=== PATIENT | female | born 1945 | race Caucasian/White ===

== ENCOUNTER → 2023-05-16 09:35 | Outpatient (REF) | payer MEDICARE, OTHER, SELFPAY ==
[2023-05-16 13:11] LABS: Depakane 61.1 ug/ml (50.0-120.0)
== END ==
LOC: OLABN 09:35
PROVIDERS: ATTENDING PHYSICIAN Student in an Organized Health Care Education/Training Program
DX: F03.90 Unspecified dementia, unspecified severity, without behavioral disturbance, psychotic disturbance, mood disturbance, and anxiety (principal)
CPT/HCPCS: 36415; 80164

== ENCOUNTER → 2023-06-27 10:43 | Outpatient (REF) | payer MEDICARE, OTHER, SELFPAY ==
[2023-06-27 12:56] LABS: % Basophils 0.7 % (0-2); % Eosinophils 3.5 % (0-6); % Immature Granulocytes 0.7 % (0-0.5); % Monocytes 14.6 % (1.7-9.3); % Neutrophils 39.5 % (42.2-75.2); Absolute Basophils 0.1 10^3/uL (0-0.2); Absolute Eosinophils 0.3 10^3/uL (0-0.7); Absolute Immature Granulocytes 0.1 10^3/uL (0-0.05); Absolute Lymphocytes 3.9 10^3/uL (1.2-3.4); Absolute Monocytes 1.4 10^3/uL (0.1-0.6); Absolute Neutrophils 3.7 10^3/uL (1.4-6.5); Hematocrit 32.7 % (37.0-47.0); Hemoglobin 10.5 g/dL (12.0-16.0); Mean Corp Hgb Conc. 32.1 g/dL (33.0-37.0); Mean Corpuscular Hgb 28.8 pg (27.0-31.0); Mean Corpuscular Volume 89.8 fL (81.0-99.0); Mean Platelet Volume 10.3 fL (7.4-10.4); Nucleated Red Blood Cells % 0 %; Platelet Count 304 10^3/uL (130-400); Red Blood Cell Count 3.64 10^6/uL (4.20-5.40); Red Cell Dist. Width 14.2 % (11.5-14.5); White Blood Cell Count 9.4 10^3/uL (4.8-10.8)
[2023-06-27 13:21] LABS: ALT (SGPT) 11 U/L (0-35); AST (SGOT) 23 U/L (14-36); Albumin 3.3 g/dl (3.5-5.0); Alkaline Phosphatase 61 U/L (38-126); Blood Urea Nitrogen 19 mg/dl (7-17); Calcium 9.1 mg/dl (8.4-10.2); Carbon Dioxide 24 mmol/L (22-30); Chloride 103 mmol/L (98-107); Glucose 84 mg/dl (70-99); HDL Cholesterol 34 mg/dl; LDL Cholesterol, Calculated 146 mg/dl; Potassium 4.9 mmol/L (3.5-5.1); Sodium 135 mmol/L (135-145); Total Bilirubin 0.4 mg/dl (0.2-1.3); Total Cholesterol 223 mg/dl (50-199); Total Protein 6.1 g/dl (6.3-8.2); Triglyceride 217 mg/dl (10-149); Very Low Density Lipoprotein 43 mg/dl (0-30); eGFR > 60.00
[2023-06-28 08:52] LABS: Glycohemoglobin (HgbA1c) 5.5 % (4.0-5.6)
== END ==
LOC: OLABN 10:43
PROVIDERS: ATTENDING PHYSICIAN Student in an Organized Health Care Education/Training Program
DX: E88.810 Metabolic syndrome (principal); E88.818 Other insulin resistance; E78.5 Hyperlipidemia, unspecified; I10 Essential (primary) hypertension; E11.00 Type 2 diabetes mellitus with hyperosmolarity without nonketotic hyperglycemic-hyperosmolar coma (NKHHC)
CPT/HCPCS: 36415; 80053; 80061; 83036; 85025

== ENCOUNTER → 2023-06-28 09:22 | Outpatient (REF) | payer MEDICARE, OTHER, SELFPAY | LOC: OLABN 09:22 | PROVIDERS: ATTENDING PHYSICIAN Student in an Organized Health Care Education/Training Program | DX: F03.90 Unspecified dementia, unspecified severity, without behavioral disturbance, psychotic disturbance, mood disturbance, and anxiety (principal) | CPT/HCPCS: 36415 ==

== ENCOUNTER → 2023-06-29 11:22 | Outpatient (REF) | payer MEDICARE, OTHER, SELFPAY ==
[2023-06-29 12:52] LABS: Depakane 68.1 ug/ml (50.0-120.0)
== END ==
LOC: OLABN 11:22
PROVIDERS: ATTENDING PHYSICIAN Student in an Organized Health Care Education/Training Program
DX: F03.90 Unspecified dementia, unspecified severity, without behavioral disturbance, psychotic disturbance, mood disturbance, and anxiety (principal)
CPT/HCPCS: 36415; 80164

== ENCOUNTER → 2023-09-26 11:04 | Outpatient (REF) | payer MEDICARE, OTHER, SELFPAY ==
[2023-09-26 11:49] LABS: HDL Cholesterol 32 mg/dl; LDL Cholesterol, Calculated 85 mg/dl; Total Cholesterol 153 mg/dl (50-199); Triglyceride 182 mg/dl (10-149); Very Low Density Lipoprotein 36 mg/dl (0-30)
== END ==
LOC: OLABN 11:04
PROVIDERS: ATTENDING PHYSICIAN Student in an Organized Health Care Education/Training Program
DX: E78.5 Hyperlipidemia, unspecified (principal)
CPT/HCPCS: 36415; 80061

== ENCOUNTER 2023-10-26 11:03 | Emergency (ER) | payer MEDICARE, OTHER, SELFPAY ==
[2023-10-26 11:09] VITALS: BP 121/58
--- NOTE | 2023-10-26 11:12 | ED.GENMED ---
History of Present Illness
<nAnel Jang DISPENSING OPTICIAN - Last Filed: 10/26/23 16:44>
General
Chief Complaint: Fever
Source: ambulance crew and detention records
Exam Limitations: non verbal-adult
Time Seen by Provider: 10/26/23 11:04
History of Present Illness
History of Present Illness:
77 yo female from [facility] with MDD, Hypothyroid, HLD, present for reported abd xray at the facility showing questionable ileus. Pt is nonverbal, alert, appears in no distress.
Spoke with Nurse Shady, states she was having intermittent nausea and vomiting for the past week and a half, using Zofran with no response, abdominal x-ray today showed possible ileus. On mechanical soft diet, typically a very good eater, eats all
her meals until this past week when appetite has been poor. Had 3 BMs in past 3 days soft to loose.
Past History
<Annel Jang, DISPENSING OPTICIAN - Last Filed: 10/26/23 16:44>
Past History
ED Past Medical History: GERD, Hypercholesterolemia, Hypothyroidism and Psychiatric (Major depressive disorder)
Review of Systems
<Annel Jang, DISPENSING OPTICIAN - Last Filed: 10/26/23 16:44>
Review of Systems
Allergies reviewed?: Yes
All Other Systems: ROS reviewed and negative except as documented in HPI and ROS
Constitutional: Reports fever
Respiratory: Denies trouble breathing
ABD/GI: Reports nausea, vomiting and anorexia; Denies diarrhea, bloody stools or black stools
: Reports incontinence
Musculoskeletal: Denies edema
Skin: Reports no symptoms
Phy Exam
<Annel Jang, DISPENSING OPTICIAN - Last Filed: 10/26/23 16:44>
Physical Exam
Physical Exam:
GENERAL: No acute distress. Nonverbal
CONSTITUTIONAL: Afebrile.
EYES: clear, conjunctivae normal
ENMT: moist mucus membranes, Pharynx nl
RESPIRATORY: Regular respirations, nonlabored, lungs clear.
CARDIOVASCULAR: Regular rate and rhythm, no murmurs, no rubs.
GI: Soft, obese, no facial indication of tenderness with deep palpation of abdomen, normal BS
MUSCULOSKELETAL: Well perfused.
SKIN: Warm, dry, pink
PSYCH: Depressed mood and affect. Well kept, non verbal
NEUROLOGIC: Awake, alert, nonverbal. No focal neurological deficits
Course
<Annel Carpio Day, DISPENSING OPTICIAN - Last Filed: 10/26/23 16:44>
Orders/Labs/Results
Orders:
Orders
10/26/23 11:10
Acetaminophen [Tylenol/Feverall] 120 mg .ROUTE .STK-MED ONE
10/26/23 11:11
Straight cath- Treatment ONCE
10/26/23 11:18
Acetaminophen [Tylenol/Feverall] 650 mg RECTAL NOW STA
10/26/23 11:27
Complete Blood Count/With Diff Urgent
Comprehensive Metabolic Panel Urgent
Lipase Urgent
Urinalysis Reflex To Culture Urgent
Date Specimen was Collected: 10/26/23
Time Specimen was Collected: 11:22
Urine Microscopic Reflex Cult Urgent
Urine Culture Urgent
CONNOR Source: U
Specimen Description:
Date Specimen was Collected: 10/26/23
Time Specimen was Collected: 11:22
10/26/23 12:00
0.9% Sodium Chloride 500 ml [Nss] 500 ml IV BOLUS
10/26/23 12:48
CT Abd/Pel (IV only)-[facility] only Urgent
Comment:
Reason For Exam: n/v week, xray a [facility] showed poss ileus
10/26/23 12:49
COVID-19 Antigen Urgent
Source: Nasal Swab
10/26/23 16:57
Cephalexin [Keflex 250 mg/5 ml] 500 mg PO NOW STA
Abnormal Lab Results
10/26/23
11:27
WBC 12.6 H 10^3/uL
(4.8-10.8)
RBC 3.65 L 10^6/uL
(4.20-5.40)
Hgb 10.4 L g/dL
(12.0-16.0)
Hct 31.7 L %
(37.0-47.0)
MCHC 32.8 L g/dL
(33.0-37.0)
Plt Count 482 H 10^3/uL
(130-400)
Abs Immat Gran (auto) 0.1 H 10^3/uL
(0-0.05)
Absolute Neuts (auto) 7.9 H 10^3/uL
(1.4-6.5)
Absolute Monos (auto) 1.3 H 10^3/uL
(0.1-0.6)
Immature Gran % 0.6 H %
(0-0.5)
Monocytes % 10.4 H %
(1.7-9.3)
Chloride 111 H mmol/L
(98-107)
BUN 27 H mg/dl
(7-17)
Glucose 119 H mg/dl
(70-99)
AST 40 H U/L
(14-36)
Ur Occult Blood Reflex 3+ A
(Negative)
Urine Nitrite (Reflex) Positive A
(Negative)
Urine Urobilinogen 2+ A
(Neg - 1+)
Leukocyte Esterase Rfl 2+ A
(Negative)
Urine WBC (Reflex) 50-60 A /HPF
(0-5)
Urine Bacteria (Reflex) Many A
(Negative)
Urine Albumin (Reflex) 3+ A
(Neg - Trace)
10/26/23 11:27
10/26/23 11:27
Vital Signs
Initial and Last Documented VS:
Initial Vital Signs
Pulse Resp
93 23
10/26/23 11:07 10/26/23 11:07
Last Documented Vital Signs
Temp Pulse Resp BP Pulse Ox
99.1 F 86 20 102/68 92
10/26/23 19:37 10/26/23 19:37 10/26/23 19:37 10/26/23 19:37 10/26/23 19:37
<Prince Houston PA-C - Last Filed: 10/30/23 10:23>
Orders/Labs/Results
Orders:
Orders
10/26/23 11:10
Acetaminophen [Tylenol/Feverall] 120 mg .ROUTE .STK-MED ONE
10/26/23 11:11
Straight cath- Treatment ONCE
10/26/23 11:18
Acetaminophen [Tylenol/Feverall] 650 mg RECTAL NOW STA
10/26/23 11:27
Complete Blood Count/With Diff Urgent
Comprehensive Metabolic Panel Urgent
Lipase Urgent
Urinalysis Reflex To Culture Urgent
Date Specimen was Collected: 10/26/23
Time Specimen was Collected: 11:22
Urine Microscopic Reflex Cult Urgent
Urine Culture Urgent
CONNOR Source: U
Specimen Description:
Date Specimen was Collected: 10/26/23
Time Specimen was Collected: 11:22
10/26/23 12:00
0.9% Sodium Chloride 500 ml [Nss] 500 ml IV BOLUS
10/26/23 12:48
CT Abd/Pel (IV only)-[facility] only Urgent
Comment:
Reason For Exam: n/v week, xray a [facility] showed poss ileus
10/26/23 12:49
COVID-19 Antigen Urgent
Source: Nasal Swab
10/26/23 16:57
Cephalexin [Keflex 250 mg/5 ml] 500 mg PO NOW STA
Abnormal Lab Results
10/26/23
11:27
WBC 12.6 H 10^3/uL
(4.8-10.8)
RBC 3.65 L 10^6/uL
(4.20-5.40)
Hgb 10.4 L g/dL
(12.0-16.0)
Hct 31.7 L %
(37.0-47.0)
MCHC 32.8 L g/dL
(33.0-37.0)
Plt Count 482 H 10^3/uL
(130-400)
Abs Immat Gran (auto) 0.1 H 10^3/uL
(0-0.05)
Absolute Neuts (auto) 7.9 H 10^3/uL
(1.4-6.5)
Absolute Monos (auto) 1.3 H 10^3/uL
(0.1-0.6)
Immature Gran % 0.6 H %
(0-0.5)
Monocytes % 10.4 H %
(1.7-9.3)
Chloride 111 H mmol/L
(98-107)
BUN 27 H mg/dl
(7-17)
Glucose 119 H mg/dl
(70-99)
AST 40 H U/L
(14-36)
Ur Occult Blood Reflex 3+ A
(Negative)
Urine Nitrite (Reflex) Positive A
(Negative)
Urine Urobilinogen 2+ A
(Neg - 1+)
Leukocyte Esterase Rfl 2+ A
(Negative)
Urine WBC (Reflex) 50-60 A /HPF
(0-5)
Urine Bacteria (Reflex) Many A
(Negative)
Urine Albumin (Reflex) 3+ A
(Neg - Trace)
10/26/23 11:27
08/07/24 11:27
Vital Signs
Initial and Last Documented VS:
Initial Vital Signs
Pulse Resp
93 23
10/26/23 11:07 10/26/23 11:07
Last Documented Vital Signs
Temp Pulse Resp BP Pulse Ox
99.1 F 86 20 102/68 92
10/26/23 19:37 10/26/23 19:37 10/26/23 19:37 10/26/23 19:37 10/26/23 19:37
<Annel Jang DISPENSING OPTICIAN - Last Filed: 10/26/23 16:44>
MDM/Problems Addressed
Differential Diagnosis Includes:
ileus, bowel obstruction
MDM/Problems Addressed:
77 yo female from [facility] with MDD, Hypothyroid, HLD, present for reported abd xray at the facility showing questionable ileus. Pt is nonverbal, alert, appears in no distress.
Spoke with Nurse Shady, states she was having intermittent nausea and vomiting for the past week and a half, using Zofran with no response, abdominal x-ray today showed possible ileus. On mechanical soft diet, typically a very good eater, eats all
her meals until this past week when appetite has been poor. Pt given Tylenol for fever 100.0 prior to transfer here. Had 3 BMs in past 3 days soft to loose.
Daughter at bedside
12:45 p.m.
CBC: WBC 12.6
CMP: BUN 27 (IV fluids running for dehydration), otherwise normal
Covid neg
4:00 PM:
CT abdomen pelvis with IV contrast radiology report read: IMPRESSION:
1. Mild bladder wall thickening and adjacent fat stranding suspicious for cystitis. Correlation with urinalysis recommended.
2. Unremarkable bowel gas pattern with no evidence for obstruction or ileus.
3. Nonspecific distended appearance of the endometrium and cervix with low-attenuation material. Findings may related to cervical stricture with endometrial hyperplasia or carcinoma within the differential. No pelvic sidewall adenopathy.
Correlation with any prior outside studies recommended.
4. Heavily calcified abdominal aorta.
5. 10 mm nephrolith within the midpole of the RIGHT kidney.
Reports reviewed with daughter.
Straight cath U/A: positive for infection.
There has been no vomiting since arrival.
Stable for discharge back to [place]
<Annel Jang DISPENSING OPTICIAN - Last Filed: 10/26/23 16:44>
*Critical Care Note
Total Time (30-74mins, 75-104mins- exclusive of procedures): Not Applicable
<Prince Houston PA-C - Last Filed: 10/30/23 10:23>
Update Note
Update Note:
Patient's urine culture grew both Proteus and E. coli species. There appears to be resistance to cefazolin and patient was prescribed Keflex. I contacted the nursing staff at [facility] and made them aware of this finding as well as fax
culture report to them. Recommended patient be changed to Augmentin. They will contact their house provider to get this antibiotic change.
ED Attending Note
<Annel Jang DISPENSING OPTICIAN - Last Filed: 10/26/23 16:44>
-
Portions of this chart may have been created with voice recognition software.� Occasional wrong word or��sound alike� substitutions may have occurred due to the inherent limitations of voice recognition software.
Discharge Plan
Departure
Patient Disposition: Intermediate/SNF
Date of Disposition: 10/26/23
Time of Disposition: 16:04
Condition: Fair
Discharge Problem:
Acute UTI
Instructions: Urinary Tract Infection, Adult ED
Prescriptions:
New
cephalexin 500 mg capsule
500 mg PO BID 7 Days Qty: 13 0RF
Referrals:
Emerson Frazier DO [Family Provider] - Follow up in 2-3 days
Activity Restrictions/Additional Instructions:
Ms. Adams has a urinary tract infection.
She was given a dose of Keflex 500 mg here today. Give her second dose this evening or tomorrow morning if not available tonight.
Abdomen CT scan shows no sign of ileus or blockage.
Please inform patients primary doctor of the CT and lab results.
Pt received NSS 500 ml IV for dehydration.
Interventions
Interventions:
*Risk Screen - Suicide Last Done: 10/26/23 11:39
*General Assessment Last Done: 10/26/23 11:39
*Neglect/Abuse Screening Last Done: 10/26/23 11:39
ED- Fall Risk Assessment Last Done: 10/26/23 11:44
*ED COVID-19 Vaccine History Last Done: 10/26/23 11:39
*Nursing Disposition Last Done: 10/26/23 19:37
ED- Neurological Assessment Last Done: 10/26/23 11:44
ED-Skin Assessment Last Done: 10/26/23 11:44
Discharge Date and Time
Discharge Date/Time: 10/26/23 19:39
Print Language: ITALIAN
[2023-10-26 11:22] VITALS: BP 121/58
[2023-10-26] MEDS: NSS 500 IV (11:24)
[2023-10-26 11:37] LABS: % Basophils 0.6 % (0-2); % Eosinophils 0.9 % (0-6); % Immature Granulocytes 0.6 % (0-0.5); % Lymphocytes 25.2 % (20.5-51.1); % Monocytes 10.4 % (1.7-9.3); % Neutrophils 62.3 % (42.2-75.2); Absolute Basophils 0.1 10^3/uL (0-0.2); Absolute Eosinophils 0.1 10^3/uL (0-0.7); Absolute Immature Granulocytes 0.1 10^3/uL (0-0.05); Absolute Lymphocytes 3.2 10^3/uL (1.2-3.4); Absolute Monocytes 1.3 10^3/uL (0.1-0.6); Absolute Neutrophils 7.9 10^3/uL (1.4-6.5); Hematocrit 31.7 % (37.0-47.0); Hemoglobin 10.4 g/dL (12.0-16.0); Mean Corp Hgb Conc. 32.8 g/dL (33.0-37.0); Mean Corpuscular Hgb 28.5 pg (27.0-31.0); Mean Corpuscular Volume 86.8 fL (81.0-99.0); Mean Platelet Volume 9.6 fL (7.4-10.4); Nucleated Red Blood Cells % 0 %; Platelet Count 482 10^3/uL (130-400); Red Blood Cell Count 3.65 10^6/uL (4.20-5.40); Red Cell Dist. Width 14.1 % (11.5-14.5); White Blood Cell Count 12.6 10^3/uL (4.8-10.8)
[2023-10-26 11:51] LABS: ALT (SGPT) 24 U/L (0-35); AST (SGOT) 40 U/L (14-36); Albumin 3.6 g/dl (3.5-5.0); Alkaline Phosphatase 76 U/L (38-126); Blood Urea Nitrogen 27 mg/dl (7-17); Calcium 9.1 mg/dl (8.4-10.2); Carbon Dioxide 25 mmol/L (22-30); Chloride 111 mmol/L (98-107); Glucose 119 mg/dl (70-99); Lipase 280 U/L (23-300); Potassium 4.6 mmol/L (3.5-5.1); Sodium 145 mmol/L (135-145); Total Bilirubin 0.5 mg/dl (0.2-1.3); Total Protein 6.7 g/dl (6.3-8.2); eGFR 57.31
[2023-10-26 12:05] VITALS: BP 101/57
[2023-10-26 13:00] VITALS: BP 101/57
[2023-10-26 13:22] LABS: COVID-19 Antigen Negative (Negative)
[2023-10-26 14:35] LABS: Urine Albumin 3+ (Neg - Trace); Urine Bilirubin Negative (Negative); Urine Character Slightly Cloudy (Clear); Urine Color Yellow; Urine Glucose Negative (Negative); Urine Ketone Negative (Negative); Urine Leukocyte 2+ (Negative); Urine Nitrite Positive (Negative); Urine Occult Blood 3+ (Negative); Urine Urobilinogen 2+ (Neg - 1+)
[2023-10-26 15:00] VITALS: BP 95/57
[2023-10-26 15:37] LABS: Urine Bacteria Many (Negative); Urine Red Blood Cell 0-2 /HPF (0-2); Urine White Cell 50-60 /HPF (0-5)
[2023-10-26] MEDS: KEFLEX 250 MG/5 ML 500 MG PO (17:28)
[2023-10-26 19:37] VITALS: BP 102/68
== END 2023-10-26 19:39 ==
LOC: EMR 11:03
PROVIDERS: Registered Nurse; EMERGENCY PHYSICIAN Emergency Medicine; FAMILY PHYSICIAN Student in an Organized Health Care Education/Training Program
DX: N39.0 Urinary tract infection, site not specified (principal); E03.9 Hypothyroidism, unspecified; E78.5 Hyperlipidemia, unspecified; Z11.52 Encounter for screening for COVID-19
CPT/HCPCS: 99285; 96360; 51701; 36415; 74177; 80053; 81003; 81015; 83690; 83735; 85025; 87077; 87086; 87186; 87811; Q9967

== ENCOUNTER → 2023-10-31 13:27 | Outpatient (REF) | payer MEDICARE, OTHER, SELFPAY ==
[2023-10-31 16:09] LABS: Blood Urea Nitrogen 26 mg/dl (7-17); Calcium 9.2 mg/dl (8.4-10.2); Carbon Dioxide 21 mmol/L (22-30); Chloride 115 mmol/L (98-107); Glucose 111 mg/dl (70-99); Potassium 4.7 mmol/L (3.5-5.1); Sodium 147 mmol/L (135-145); eGFR 57.31
[2023-10-31 16:41] LABS: % Basophils 0.5 % (0-2); % Eosinophils 2.6 % (0-6); % Immature Granulocytes 0.5 % (0-0.5); % Lymphocytes 26.5 % (20.5-51.1); % Neutrophils 61.9 % (42.2-75.2); Absolute Basophils 0.1 10^3/uL (0-0.2); Absolute Eosinophils 0.3 10^3/uL (0-0.7); Absolute Immature Granulocytes 0.1 10^3/uL (0-0.05); Absolute Lymphocytes 3.5 10^3/uL (1.2-3.4); Absolute Monocytes 1.1 10^3/uL (0.1-0.6); Absolute Neutrophils 8.3 10^3/uL (1.4-6.5); Hematocrit 37.4 % (37.0-47.0); Hemoglobin 11.6 g/dL (12.0-16.0); Mean Corpuscular Hgb 28.6 pg (27.0-31.0); Mean Corpuscular Volume 92.3 fL (81.0-99.0); Nucleated Red Blood Cells % 0 %; Red Blood Cell Count 4.05 10^6/uL (4.20-5.40); White Blood Cell Count 13.3 10^3/uL (4.8-10.8)
== END ==
LOC: OLABN 13:27
PROVIDERS: ATTENDING PHYSICIAN Student in an Organized Health Care Education/Training Program
DX: N39.0 Urinary tract infection, site not specified (principal)
CPT/HCPCS: 36415; 80048; 85025